=== PATIENT | female | born 1980 | race Caucasian/White ===

== ENCOUNTER 2017-04-03 08:52 | Emergency (ER) | payer BC ==
[~2017-04-03] VITALS: Ht 167.6 cm; Wt 97.5 kg
[~2017-04-03 08:52] MED LIST: ANTIVERT/2525 MG PO; NAPROSYN 500MG500 MG PO; VALIUM5 MG PO; VISTARIL25 M1 PO
--- OUTSIDE RECORDS SUMMARY | 2017-04-03 08:58 | External Medical Summary Rpt | CCD ---
Demographics Preferred Language Barbadian Marital Status Unknown Christianity Affiliation Unknown Race Unknown Ethnic Group Unknown Author Author , ESTHER SANTANA Address Unknown Phone Immunization No patient found.
--- OUTSIDE RECORDS SUMMARY | 2017-04-03 08:58 | External Medical Summary Rpt | CCD ---
Author Author Conduent Organization [employer] Address Unknown Phone Unavailable Purpose Continuity of Care Document - through 2016
--- OUTSIDE RECORDS SUMMARY | 2017-04-03 08:58 | External Medical Summary Rpt | CCD ---
Author Author , ESTHER SANTANA Address Unknown Phone [email or web address] Care Team Providers Care Forest Examiner Name Role Phone Bee Horne MD, Unavailable Unavailable Bee Horne MD Purpose Continuity of Care Document - 12-03-2012 through 2016 Problems Code Diagnosis DOS Provider Status 413.9 413.9 12-03-2012 [place] ANGINA [facility] NEC/NOS 786.05 786.05 12-03-2012 [place] SHORTNESS [facility] 786.59 786.59 12-03-2012 [place] CHEST PAIN [facility] Allergies, Adverse Reactions, Alerts Type Drug Allergy Adverse Reaction to Substance Substance Reaction Severity NO KNOWN DRUG Unknown Unknown ALLERGIES Vital Signs 12-03-2012 14:08 Name Value Interpretat Reference Comment ion Range Body 98.7 [degF] Temperature BP 71 mm[Hg] Diastolic BP Systolic 122 mm[Hg] Heart 85 /min Rate/Pulse O2% 100 % Respiratory 20 /min Rate 12-03-2012 13:48 Name Value Interpretat Reference Comment ion Range BP 81 mm[Hg] Diastolic BP Systolic 116 mm[Hg] Heart 86 /min Rate/Pulse O2% 100 % Respiratory 20 /min Rate Results Labs Lab Lab Date Result Refere Interp Status Commen Order Detail nces retati t Range on BASIC METABOLIC PANEL (12-03-2012 13:14) Glucose 88 74-106 complet 013 mg/dL ed Bld-mCn 13:14 c BUN 14 7-18 complet Bld-mCn 013 mg/dL ed c 13:14 Creat 0.9 0.6-1.0 complet SerPl-m 013 mg/dL ed Cnc 13:14 ESTIMAT 129 50-200 complet ED 013 ML/MIN ed CREATIN 13:14 INE CLEARAN CE GFR 07-29-2 73 59- complet (ESTIMA 013 ML/MIN ed JODIE) 13:14 Sodium 139 136-145 complet SerPl-s 013 mmoL/L ed Cnc 13:14 Potassi 12-03-2 3.6 3.5-5.1 complet um 013 mmoL/L ed SerPl-s 13:14 Cnc Chlorid 103 98-107 complet e 013 mmoL/L ed SerPl-s 13:14 Cnc CO2 2 25 21.0-32 complet SerPl-s 013 mmoL/L .0 ed Cnc 13:14 Calcium 2 9.1 8.5-10. complet 013 mg/dL 1 ed SerPl-m 13:14 Cnc CBC with AUTO DIFF (12-03-2012 13:14) WBC # 29-2 6.1 4.8-10. complet Bld 013 K/MM3 8 ed Auto 13:14 RBC # 12-03-2 4.56 4.2-5.4 complet Bld 013 M/mm3 ed Auto 13:14 Hgb 12-03-2 14.0 12.2-16 complet Bld-mCn 013 g/dL .2 ed c 13:14 Hct Fr 2 40.7 % 37.0-47 complet Bld 013 .0 ed 13:14 MCV RBC 12-03-2 89.2 fl 82.2-97 complet 013 .8 ed 13:14 MCH RBC 12-03-2 30.8 pg 27-31.2 complet Qn 013 ed Auto 13:14 MEAN 12-03-2 34.5 31.8-35 complet CORPUSC 013 g/dl .4 ed ULAR 13:14 HGB CONC RDW RBC 12-03-2 12.5 % 11.5-17 complet Auto 013 .5 ed 13:14 Platele 12-03-2 310 142-424 complet t Bld 013 K/mm3 ed Ql 13:14 Manual MEAN 12-03-2 7.0 fl 7.4-10. complet PLATELE 013 4 ed T 13:14 VOLUME Granulo 12-03-2 57.8 % 37.0-80 complet cytes 013 .0 ed Fr Bld 13:14 Auto LYMPH % 12-03-2 34.9 % 10-50.0 complet 013 ed 13:14 Monocyt 12-03-2 4.6 % 1.7-9.3 complet es Fr 013 ed Bld 13:14 Auto Eosinop 12-03-2 2.1 % 0.1-12. complet hil Fr 013 0 ed Bld 13:14 Auto Basophi 12-03-2 0.6 % 0.1-2.0 complet ls Fr 013 ed Bld 13:14 Auto Granulo 12-03-2 3.5 1.8-7.8 complet cytes # 013 K/mm3 ed Bld 13:14 Auto Lymphoc 12-03-2 2.1 0.7-4.5 complet ytes Fr 013 K/mm3 ed Bld 13:14 Auto Monocyt 12-03-2 0.3 0.1-1.0 complet es # 013 K/mm3 ed Bld 13:14 Auto Eosinop 12-03-2 0.1 0.0-0.4 complet hil # 013 K/mm3 ed Bld 13:14 Auto Basophi 12-03-2 0.0 0-0.2 complet ls # 013 K/MM3 ed Bld 13:14 Auto Encounters Encounter Start End Date Code Location Performer Type Date Emergency MELISSA Horne MD (ER) 3 13:39 3 14:14 [facility]
--- OUTSIDE RECORDS SUMMARY | 2017-04-03 08:58 | External Medical Summary Rpt ---
Author Author ESTHER Jana, ESTHER [employer] Organization [employer] Address Unknown Phone Unavailable Results XR CHEST PA AND LATERAL Observa Value Referen Units Interpr Notes Date tion ce etation Range XR No No No No May 02 CHEST informa informa informa informa 2015 PA AND tion in tion in tion in tion in 4:21 PM LATERAL source source source source \.br\12 data data data data / 6 4:21 PM\.br\ History : 35 years .Female . -HYPERT ENSION\ .br\-CH EST PAIN.\. br\\.br \Lungs are clear. Heart and mediast inum appear normal. \.br\\. br\IMPR ESSION: \.br\No radiogr aphic evidenc e of active cardiac or pulmona ry disease \.br\pr ocess.\ .br\ HCG Qual Observa Value Referen Units Interpr Notes Date tion ce etation Range HCG Negativ No No No No May 02 QUAL e informa informa informa informa 2015 tion in tion in tion in tion in 4:34 PM source source source source data data data data Auto Diff Observa Value Referen Units Interpr Notes Date tion ce etation Range Neutrop 54.5 No % No No May 02 hils informa informa informa 2015 [#/volu tion in tion in tion in 4:15 PM me] in source source source Blood data data data by Automat ed count Lymphoc 35.7 No % No No May 02 ytes informa informa informa 2015 [#/volu tion in tion in tion in 4:15 PM me] in source source source Blood data data data by Automat ed count Monocyt 6.2 No % No No May 02 es informa informa informa 2016 [#/volu tion in tion in tion in 4:15 PM me] in source source source Blood data data data by Automat ed count Eos 2.9 No % No No Dec 26 Percent informa informa informa 2016 tion in tion in tion in 4:15 PM source source source data data data Baso 0.7 No % No May 02 Percent informa informa informa 2016 tion in tion in tion in 4:15 PM source source source data data data Neut# 3.7 1.8 - x10(3)/ No No May 02 7.7 mcL informa informa 2016 tion in tion in 4:15 PM source source data data Lymph# 2.4 0.6 - x10(3)/ No No May 02 4.8 mcL informa informa 2016 tion in tion in 4:15 PM source source data data Bee# 0.4 0.0 - x10(3)/ No No May 02 1.3 mcL informa informa 2016 tion in tion in 4:15 PM source source data data Eos# 0.2 0.0 - x10(3)/ No No May 02 0.5 mcL informa informa 2016 tion in tion in 4:15 PM source source data data Baso# 0.0 0.0 - x10(3)/ No No May 02 0.2 mcL informa informa 2016 tion in tion in 4:15 PM source source data data CBC Observa Value Referen Units Interpr Notes Date tion ce etation Range LEUKOCY 6.7 4.0 - x10(3)/ No No May 02 ABBY 11.0 mcL informa informa 2016 tion in tion in 4:15 PM source source data data Erythro 4.48 3.80 - x10(6)/ No May 02 cytes 5.10 mcL informa informa 2015 [#/volu tion in tion in 4:15 PM me] in source source Blood data data by Automat ed count Hemoglo 13.6 12.0 - gm/dL No May 02 bin 15.6 informa informa 2015 [Mass/v tion in tion in 4:15 PM olume] source source in data data Blood Hematoc 40.0 35.7 - % No May 02 rit 45.9 informa informa 2016 [Volume tion in tion in 4:15 PM source source Fractio data data n] of Blood by Automat ed count Erythro 89.3 82.5 - fL No May 02 cyte 99.8 informa informa 2016 mean tion in tion in 4:15 PM corpusc source source ular data data volume [Entiti c volume] by Automat ed count Erythro 30.4 27.0 - pg No May 02 cyte 34.3 informa informa 2016 mean tion in tion in 4:15 PM corpusc source source ular data data hemoglo bin [Entiti c mass] by Automat ed count Erythro 34.0 32.1 - gm/dL No May 02 cyte 35.3 informa informa 2016 mean tion in tion in 4:15 PM corpusc source source ular data data hemoglo bin concent ration [Mass/v olume] by Automat ed count Erythro 12.3 11.5 - % No May 02 cyte 15.0 informa informa 2016 distrib tion in tion in 4:15 PM ution source source width data data [Ratio] by Automat ed count Platele 278 144 - x10(3)/ No May 02 ts 423 mcL informa informa 2016 [#/volu tion in tion in 4:15 PM me] in source source Blood data data by Automat ed count MPV 7.4 6.8 - fL No May 02 10.8 informa informa 2016 tion in tion in 4:15 PM source source data data EK EKG 12 LEAD Observa Value Referen Units Interpr Notes Date tion ce etation Range Station No No No No May 02 avis ECG informa informa informa informa 2016 tion in tion in tion in tion in 3:55 PM Study\. source source source source br\St. data data data data [facility]\ .br\Int erpreti ve Stateme nts\.br \SINUS TACHYCA RDIA\.b r\MARKE D LEFT AXIS DEVIATI ON\.br\ NO ACUTE CHANGES \.br\El ectroni maycol Signed On 016 17:58:1 0 EST by Will Rose MD
--- OUTSIDE RECORDS SUMMARY | 2017-04-03 08:58 | External Medical Summary Rpt | CCD ---
Demographics Preferred Language Singaporean Marital Status Unknown Muslim Affiliation Unknown Race Unknown Ethnic Group Unknown Author Author , ESTHER SANTANA Address Unknown Phone Immunization No patient found.
--- OUTSIDE RECORDS SUMMARY | 2017-04-03 08:58 | External Medical Summary Rpt ---
[...] in 4:15 PM source source data data [facility]# 0.4 0.0 - x10(3)/ No No May [...]
--- OUTSIDE RECORDS SUMMARY | 2017-04-03 08:58 | External Medical Summary Rpt | CCD ---
Author Author , ESTHER SANTANA Address Unknown Phone [email or web address] Care Team Providers Care Quill Collector Name Role Phone Bee Horne MD, Unavailable Unavailable Bee Horne MD Purpose Continuity of Care Document - 12-03-2012 through 2016 Problems Code Diagnosis DOS Provider Status 413.9 413.9 12-03-2012 [place] ANGINA [facility] NEC/NOS 786.05 786.05 12-03-2012 [place] SHORTNESS [facility] 786.59 786.59 12-03-2012 [place] CHEST PAIN [facility] Allergies, Adverse Reactions, Alerts Type Drug Allergy [...] Horne MD (ER) 3 13:39 3 14:14 [facility]
[2017-04-03 09:22] LABS: URINE BILIRUBIN - DIPSTICK NEGATIVE (NEG); URINE BLOOD NEGATIVE (NEG)
[2017-04-03] MEDS ORDERED: KEFLEX 500MG.500 MG PO (09:41)
[2017-04-03] MEDS ORDERED: PYRIDIUM100 M2 PO (09:41)
--- NOTE | 2017-04-03 09:42 | Urgent Treatment Center Report ---
History of Present Issue Date/Time Seen by Provider 04/03/17 09 Visit Reason Pt arrived:Walked Presenting Problem:FEVER, CHILLS, BILATERAL FLANK PAIN AND ALSO HAS A SORE THROAT. Location if Accident: Onset of symptoms date/time:/ or onset unknown for:MEDICAL HX UNKNOWN Have you (or family members/close friends) recently traveled outside the [place]? N If Yes, where/when: Have you had exposure to infectious disease within the past month? TB? Other? Specify: Patient state that she has been having sore throat and felt like she may have had a fever for the last several days State that she has been having chills and pain in her lower back and flank area thinks she may have a UTI State that this morning she also noticed that she thinks she has a lymph node swollen. ALLERGIES Coded Allergies: No Known Drug Allergies (06/22/12) History Medical History General Angina: Yes PA: No Hypertension? No Hyperlipidemia? No CHF? No COPD? No Asthma? No CVA? No Seizures? No Diabetes? No GB Disease: No MRSA? No TB? No Cancer? 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 Genitourinary dysuria, frequency, pain. Physical Exam Vital Signs Vital Signs Date Time Temp Pulse Resp B/P Pulse O2 O2 Flow FiO2 Ox Delivery Rate 04/03 913 98.5 110 20 141/92 98 General Appearance normal appearance, WD/WN, no apparent distress Ear, Nose, Throat Throat red, irritated no exudate noted, no tenderness in sinus area Neck normal inspection, non-tender, supple, full range of motion Respiratory Status Yes: trachea midline, chest symmetrical, non tender chest. No: respiratory distress. Lung Sounds bilateral: normal breath sounds, lungs clear. Cardiovascular normal exam, regular rate/rhythm, no peripheral edema Gastrointestinal normal bowel sounds, normal exam, no guarding, no rebound Back normal inspection, no CVA tenderness, no vertebral tenderness, bowel/ bladder continent, gait normal Neurologic alert, normal exam, oriented x 3 Medical Decision Making LABS/Meds/Orders Pt receiving controlled substance in ED? No Results/Orders Laboratory Tests 04/03/17 0952: Influenza Type A Ag NOT DETECTED, Influenza Type B Ag NOT DETECTED 04/03/17912: Urine Color DARK YELLOW, Urine Appearance CLEAR, Urine pH 7.0, Ur Specific [place] 1.020, Urine Protein NEGATIVE, Urine Ketones NEGATIVE, Urine Blood NEGATIVE, Urine Nitrate NEGATIVE, Urine Bilirubin NEGATIVE, Urine Urobilinogen 0.2, Ur Leukocyte Esterase TRACE H, Urine Glucose NEGATIVE Orders Procedure Date/time Status [facility] FLU A,B 04/03 952 Complete UTC URINE DIPSTICK 04/03 913 Complete Departure Departure Time of Disposition 0939 Disposition DC Home or Self Care(routine) Clinical Impression Primary Impression: UTI (urinary tract infection) Qualifiers: Urinary tract infection type: site unspecified Hematuria presence: with hematuria Qualified Code: N39.0 - Urinary tract infection, site not specified Condition STABLE Referrals Chriss Giraldo MD (Family): 2 Days-Call Office Or sooner if no improvement Patient Instructions DI for Urinary Tract Infection (UTI), Sore Throat, Urinary Tract Infection Additional Instructions *Increase fluids. Water not Soda or Tea *Start antibiotic immediately and be sure to take as ordered for the FULL length of time although you should start to see improvement over the next 48 hours *Pyridium as needed Remember this medication will turn your urine [place]. This is normal but it will stain what ever it gets on *You should not use Pyridium for more than 48 hours. If so , follow up with your primary physician to review urine culture and ensure that antibiotic is adequate for infection *Be SURE to follow up anytime for new or worsening symptoms. AND in 48 hours for urine culture results AND in 10-14 days to repeat UA to ensure infection is resolved and blood no longer present *Be sure to let your PCP know that we sent urine cultures from the [facility] so they can follow up to ensure that you area the on the correct antibiotic Discharge Counseling Counseled pt/family regarding diagnosis, test results, medications/RX, home care, follow up needs Prescriptions Current Visit Scripts CEPHALEXIN (Keflex 500MG Capsule) 500 MG PO BID #20 CAP Phenazopyridine HCl (Pyridium) 100 MG PO TID #6 TAB at 0955
--- NOTE | 2017-04-03 09:42 | Urgent Treatment Center Report ---
History of Present Issue Date/Time Seen by Provider 04/03/17 09 Visit Reason Pt arrived:Walked Presenting Problem:FEVER, CHILLS, BILATERAL FLANK PAIN AND ALSO HAS A SORE THROAT. Location if Accident: Onset of symptoms date/time:/ or onset unknown for:MEDICAL HX UNKNOWN Have you (or family members/close friends) recently traveled outside the [place]? N If Yes, where/when: Have you had exposure to infectious disease within the past month? TB? Other? Specify: Patient state that she has been having sore throat and felt like she may have had a fever for the last several days State that she has been having chills and pain in her lower back and flank area thinks she may have a UTI State that this morning she also noticed that she thinks she has a lymph node swollen. ALLERGIES Coded Allergies: No Known Drug Allergies (06/22/12) History Medical History General Angina: Yes NE: No Hypertension? No Hyperlipidemia? No CHF? No COPD? No Asthma? No CVA? No Seizures? No Diabetes? No GB Disease: No MRSA? No TB? No Cancer? 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 Genitourinary dysuria, frequency, pain. Physical Exam Vital Signs Vital Signs Date Time Temp Pulse Resp B/P Pulse O2 O2 Flow FiO2 Ox Delivery Rate 04/03 913 98.5 110 20 141/92 98 General Appearance normal appearance, WD/WN, no apparent distress Ear, Nose, Throat Throat red, irritated no exudate noted, no tenderness in sinus area Neck normal inspection, non-tender, supple, full range of motion Respiratory Status Yes: trachea midline, chest symmetrical, non tender chest. No: respiratory distress. Lung Sounds bilateral: normal breath sounds, lungs clear. Cardiovascular normal exam, regular rate/rhythm, no peripheral edema Gastrointestinal normal bowel sounds, normal exam, no guarding, no rebound Back normal inspection, no CVA tenderness, no vertebral tenderness, bowel/ bladder continent, gait normal Neurologic alert, normal exam, oriented x 3 Medical Decision Making LABS/Meds/Orders Pt receiving controlled substance in ED? No Results/Orders Laboratory Tests 04/03/17 0952: Influenza Type A Ag NOT DETECTED, Influenza Type B Ag NOT DETECTED 04/03/17912: Urine Color DARK YELLOW, Urine Appearance CLEAR, Urine pH 7.0, Ur Specific [place] 1.020, Urine Protein NEGATIVE, Urine Ketones NEGATIVE, Urine Blood NEGATIVE, Urine Nitrate NEGATIVE, Urine Bilirubin NEGATIVE, Urine Urobilinogen 0.2, Ur Leukocyte Esterase TRACE H, Urine Glucose NEGATIVE Orders Procedure Date/time Status [facility] FLU A,B 04/03 952 Complete UTC URINE DIPSTICK 04/03 913 Complete Departure Departure Time of Disposition 0939 Disposition DC Home or Self Care(routine) Clinical Impression Primary Impression: UTI (urinary tract infection) Qualifiers: Urinary tract infection type: site unspecified Hematuria presence: with hematuria Qualified Code: N39.0 - Urinary tract infection, site not specified Condition STABLE Referrals Chriss Giraldo MD (Family): 2 Days-Call Office Or sooner if no improvement Patient Instructions DI for Urinary Tract Infection (UTI), Sore Throat, Urinary Tract Infection Additional Instructions *Increase fluids. Water not Soda or Tea *Start antibiotic immediately and be sure to take as ordered for the FULL length of time although you should start to see improvement over the next 48 hours *Pyridium as needed Remember this medication will turn your urine [place]. This is normal but it will stain what ever it gets on *You should not use Pyridium for more than 48 hours. If so , follow up with your primary physician to review urine culture and ensure that antibiotic is adequate for infection *Be SURE to follow up anytime for new or worsening symptoms. AND in 48 hours for urine culture results AND in 10-14 days to repeat UA to ensure infection is resolved and blood no longer present *Be sure to let your PCP know that we sent urine cultures from the [facility] so they can follow up to ensure that you area the on the correct antibiotic Discharge Counseling Counseled pt/family regarding diagnosis, test results, medications/RX, home care, follow up needs Prescriptions Current Visit Scripts CEPHALEXIN (Keflex 500MG Capsule) 500 MG PO BID #20 CAP Phenazopyridine HCl (Pyridium) 100 MG PO TID #6 TAB at 0955
[2017-04-03 09:57] VITALS: BP 130/96
== END 2017-04-03 09:58 | disposition home or self-care (01) ==
LOC: UTC 08:52
PROVIDERS: Nurse Practitioner
DX: N39.0 Urinary tract infection, site not specified (principal)